=== PATIENT | male | born 1950 | race Caucasian/White ===

== ENCOUNTER 2023-03-07 16:58 | Inpatient (IN) | payer MEDICARE, OTHER ==
[~2023-03-07] VITALS: Ht 172.7 cm; Wt 89.9 kg
[2023-03-07] MEDS ORDERED: LIPITOR40 MG PO (17:16)
[2023-03-07] MEDS ORDERED: PARVA-CAL 5001 EACH PO (17:17)
[2023-03-07] MEDS ORDERED: ST. JOSEPH ASPI81 M1 PO ×2 (17:17)
[2023-03-07] MEDS ORDERED: FERROUS GLUCON324 M1 PO ×2 (17:18)
[2023-03-07] MEDS ORDERED: HEARTBURN PREVE20 MG PO ×2 (17:18)
[2023-03-07] MEDS ORDERED: LISINOPRIL20 MG PO ×2 (17:18)
[2023-03-07] MEDS ORDERED: KAPSPARGO SPRIN25 MG PO (17:19)
[2023-03-07] MEDS ORDERED: METFORMIN HCL500 M3 PO (17:19)
[2023-03-07] MEDS ORDERED: SOAANZ40 MG PO ×2 (17:20)
[2023-03-07] MEDS ORDERED: FLOMAX0.4 MG PO ×2 (17:20)
[2023-03-07 17:38] LABS: BASOPHILS 0.8 % (0-2); EOSINOPHILS 1.2 % (0-6); HEMATOCRIT 33.7 % (35.0-50.0); HEMOGLOBIN 10.4 g/dL (12.0-18.0); LYMPHOCYTES 12.8 % (24-44); MCH 24.6 (27-36); MCHC 30.8 g/dl (30-36); MCV 79.9 fl (81-99); MONOCYTES 9.4 % (0-12); NEUTROPHILS 75.8 % (39-80); PLATELET COUNT 148 K/uL (140-440); RBC 4.22 M/ul (4.3-5.7); RDW 22.2 (10.5-15.0)
[2023-03-07 18:00] LABS: ALBUMIN 3.1 g/dL (3.4-5.0); ALBUMIN/GLOBULIN RATIO 0.63 (1.1-2.4); ANION GAP 13.5 (7-21); BILIRUBIN, TOTAL 1.3 ng/dL (0.2-1.0); BUN/CREATININE RATIO 14.15 (6.0-28.6); CREATININE, SERUM 2.12 mg/dL (0.70-1.30); POTASSIUM 5.5 mmol/L (3.5-5.1)
[2023-03-07 20:16] LABS: INFLUENZA B NAA NEGATIVE (NEGATIVE); RESPIRATORY SYNCYTIAL VIR NAA NEGATIVE (NEGATIVE)
[2023-03-07 22:19] VITALS: BP 116/75
[2023-03-07 22:35] LABS: ANION GAP 13.8 (7-21); BUN/CREATININE RATIO 14.28 (6.0-28.6); CALCIUM 9.1 mg/dL (8.5-10.1); CREATININE, SERUM 2.24 mg/dL (0.70-1.30); POTASSIUM 5.8 mmol/L (3.5-5.1)
--- NOTE | 2023-03-07 22:53 | EKG ---
[facility] [address] [place] [address] Signed Sinus tachycardia Low voltage QRS Cannot rule out Inferior infarct , age undetermined Possible Anterolateral infarct , age undetermined Abnormal ECG No previous ECGs available Confirmed by Natasha Khalil MD () on 03/07/2023 10:53:01 PM Electronically Signed By: NATASHA KHALIL MD 03/07/232252 PATIENT NAME: REY BYRD Electrocardiogram DATE OF : 54 PHYSICIAN: NATASHA KHALIL MD REPORT #: [id number] REPORT IS CONFIDENTIAL AND NOT TO BE RELEASED WITHOUT AUTHORIZATION
--- NOTE | 2023-03-07 23:39 | NUR ---
pATEINT TRANSFERRED FROM ed. rEPORT PROVIDED BY YAIR. PATIENT PLEASANT, A/O, TELE APPLIED, VSS, O2 SATS 94-96% ON RA AND PATIENT STATES HE DOES NOT FEEL SOB NOW, LUNGS WITH EXP WHEEZE, PATIENT WITH GENERALIZED EDEMA TO ABD, CHEST, LEGS, GIVEN 40MG IV LASIX, BLOOD SUGAR 106 AND NO INSULIN REQUIRED, TALKED WITH MD ON PHONE - HE ADDED CALCIUM GLUCANATE 100MG IV TO ORDERS TO ASSIST WITH ELEVATED POTASSIUM, WILL REDRAW LABS AT 0200. PATIENT WITH BRUISE TO LEFT ELBOW, REDNESS AND DRY BILAT LE, PATIENT DENIES N/T. PATIENT LEFT LEG IS WEAKER THAN RIGHT, HAS A RED AREA TO COCCYX SKIN IS NOT BROKEN, MEPLILEX FOAM PAD APPLIED. PATIENT ASSISTED TO LAY ON RIGHT SIDE WITH PILLOW SUPPORT. CALL LIGHT IN REACH. PATIENT WANTS TO SLEEP NOW AND HAS NO COMPLIANTS.
[2023-03-08] VITALS (8 sets, daily range): BP systolic 102–117; BP diastolic 64–78
[2023-03-08] MEDS ORDERED: MAGNESIUM OXID400 M1 PO ×2
[2023-03-08] MEDS ORDERED: MELATONIN3 MG PO ×2 (00:03)
[2023-03-08] MEDS ORDERED: PLAVIX75 MG PO ×2 (00:04)
--- NOTE | 2023-03-08 02:23 | NUR ---
Patient sleeping between care, lab in for blood draw, Vitals done and stable, Attempted to change patients incont pad and he did not want me to and started to becomde upset when pushed about it. Talked to patient about the need to keep track of his output and assured him I would take care of it quickly and then allow him to sleep uninterupted for several hours and patient agreed. Had a large amount of incont. urine, percare provided and clean pad applied. patient resting on side now, lights out and call light within reach.
[2023-03-08 02:34] LABS: ANION GAP 14.9 (7-21); BUN/CREATININE RATIO 14.88 (6.0-28.6); CALCIUM 9.3 mg/dL (8.5-10.1); CREATININE, SERUM 2.15 mg/dL (0.70-1.30); POTASSIUM 5.9 mmol/L (3.5-5.1)
--- NOTE | 2023-03-08 02:50 | NUR ---
Lab results back, MD notified. Potassium went from 5.8 to 5.9. MD would like to continue close monitoring and if 0600 lab draw has not come down he would like notified. patient resting in bed, no complaints, just wanting to get some sleep.
[2023-03-08 05:21] LABS: BASOPHILS 1.3 % (0-2); HEMATOCRIT 31.9 % (35.0-50.0); HEMOGLOBIN 9.9 g/dL (12.0-18.0); LYMPHOCYTES 12.4 % (24-44); MCH 24.8 (27-36); MCHC 31.1 g/dl (30-36); MCV 79.7 fl (81-99); MONOCYTES 7.9 % (0-12); NEUTROPHILS 78.4 % (39-80); PLATELET COUNT 140 K/uL (140-440); RDW 22.4 (10.5-15.0)
--- NOTE | 2023-03-08 05:26 | NUR ---
Patient awake, had a brief leg cramp. assisted up to bedside to sit, Noted increased SOB with activity. placed on 2 liters NC for comfort. Patient happy he was able to get a good night sleep. Incont. urine, pericare provided and pad changed, Patient is now going to try to go back to sleep, lights out and call light within reach.
[2023-03-08 05:39] LABS: ALBUMIN 3.1 g/dL (3.4-5.0); ALBUMIN/GLOBULIN RATIO 0.67 (1.1-2.4); ANION GAP 16.6 (7-21); BILIRUBIN, TOTAL 1.6 ng/dL (0.2-1.0); BUN/CREATININE RATIO 14.6 (6.0-28.6); CALCIUM 9.1 mg/dL (8.5-10.1); CREATININE, SERUM 2.26 mg/dL (0.70-1.30); PHOSPHORUS, INORGANIC 5.4 mg/dL (2.5-4.9); POTASSIUM 5.6 mmol/L (3.5-5.1); PROTEIN, TOTAL 7.7 g/dL (6.4-8.2)
--- NOTE | 2023-03-08 07:00 | NUR ---
Report from night nurse. Patient resting in bed with eyes closed, allowed to rest.
--- NOTE | 2023-03-08 07:30 | NUR ---
Yelling out. This nurse in room. Patient states his left foot is painful. States he just wants lotion applied to foot. Lotion applied per request and elevated on pillow. States pain has decreased significantly. Denies other needs at this time.
--- NOTE | 2023-03-08 09:37 | NUR ---
ASSEMSSMENT COMPLETED. AM MEDICATIONS ADMINISTERED. INCONTINENT, PERICARE PROVIDED. VITALS OBTAINED AND WEIGHED. WARM BLANKET PROVIDED AND TEMP INCREASED IN ROOM. DENIES OTHER NEEDS. CALL LIGHT IN REACH, BED RAILS UP X2.
[2023-03-08] MEDS ORDERED: METFORMIN HCL500 MG PO ×2 (09:58)
[2023-03-08] MEDS ORDERED: NITROGLYCERIN0.4 MG SL ×2 (09:58)
[2023-03-08] MEDS ORDERED: ATORVASTATIN CA40 MG PO ×2 (09:59)
[2023-03-08] MEDS ORDERED: METOPROLOL TART25 MG PO ×2 (10:00)
[2023-03-08 12:14] LABS: ANION GAP 15.7 (7-21); BUN/CREATININE RATIO 14.97 (6.0-28.6); CALCIUM 9.1 mg/dL (8.5-10.1); CREATININE, SERUM 2.27 mg/dL (0.70-1.30); POTASSIUM 5.7 mmol/L (3.5-5.1)
--- NOTE | 2023-03-08 12:25 | NUR ---
MED REC COMPLETE
[2023-03-08 16:00] LABS: EOSINOPHILS 0.2 % (0-6); HEMATOCRIT 32.2 % (35.0-50.0); LYMPHOCYTES 13.8 % (24-44); MCH 24.7 (27-36); MCHC 31.1 g/dl (30-36); MCV 79.4 fl (81-99); MONOCYTES 10.5 % (0-12); NEUTROPHILS 74.5 % (39-80); PLATELET COUNT 130 K/uL (140-440); RBC 4.05 M/ul (4.3-5.7); RDW 22.3 (10.5-15.0)
[2023-03-08 17:16] LABS: ANION GAP 15.7 (7-21); BUN/CREATININE RATIO 16.07 (6.0-28.6); CALCIUM 9.3 mg/dL (8.5-10.1); CREATININE, SERUM 2.24 mg/dL (0.70-1.30); POTASSIUM 5.7 mmol/L (3.5-5.1)
--- NOTE | 2023-03-08 19:50 | NUR ---
REPORT RECIEVED FROM DAY SHIFT RN. PATIENT IN BED WATCHING TV. PATIENT STATES NEEDING TO HAVE BM. PATIENT PLACED ON BEDPAN WITH CALL LIGHT FOR PRIVACY AND EDUCATED HOW TO CALL WHEN HE IS READY. PATIENT STATES NO FURTHER NEEDS.
--- NOTE | 2023-03-08 21:12 | NUR ---
PATIENT RESTING IN BED WATCHING TV. PATIENT VS AND I&Os OBTAINED AND RECORDED. ASSESSMENT COMPLETE. IV FLUSHED AND WNL. BILAT LUNGS CLEAR. PATIENT STATES PAIN IN BILAT THIGHS. PRN PAIN AND SCHEDULED MEDICATIONS ADMINISTERED, SEE MAR. PATIENT HAS NO FURTHER NEEDS. CALL LIGHT IN REACH. PATIENT STATES HIS "BREATHING IS ALOT BETTER".
[2023-03-08 22:22] LABS: ANION GAP 15.2 (7-21); BUN/CREATININE RATIO 15.78 (6.0-28.6); CALCIUM 9.1 mg/dL (8.5-10.1); CREATININE, SERUM 2.28 mg/dL (0.70-1.30); POTASSIUM 6.2 mmol/L (3.5-5.1)
--- NOTE | 2023-03-08 22:46 | NUR ---
PATIENT IN BED RESTING ON BACK WITH EYES CLOSED. REPIRATIONS EVEN AND UNLABORED. CALL LIGHT IN REACH.
--- NOTE | 2023-03-08 23:39 | NUR ---
PATIENT TRANSFERRED TO CCU. REPORT GIVEN TO CCU RN. ALL PERSONAL BELONGINGS WITH PATIENT.
[2023-03-09] VITALS (13 sets, daily range): BP systolic 88–112; BP diastolic 62–81
--- NOTE | 2023-03-09 | NUR ---
DISCUSSED PLAN OF CARE WITH DR. KHALIL. PATIENT TO RECEIVED INSULIN SUB-Q PER ORDER WITH AMP OF D50 AND THEN D10 STARTED AT 50 ML/HR. PLAN TO DO HOURLY ACCU CHECKS TO ASSURE PATIENT'S GLUCOSE IS WNL; WILL COVER WITH MORE INSULIN ON A CARE BY CARE BASES. PATIENT IS ALSO TO RECEIVE A LOJA FOR STRICT I&O'S.
--- NOTE | 2023-03-09 00:30 | NUR ---
PATIENT IS AAOX4. ON ARRIVAL PATIENT INCONTINENT OF LARGE BM. ATTENDS CHANGED. PRESSURE SORE NOTED ON COCCYX AND ALYVEN CHANGED. BARRIER CREAM APPLIED TO BUTTOCKS. GROIN IS RED WITH SIGNIFICANT EDEMA NOTED. LOJA PLACED; 14F COUDE LOJA WITH SLIGHT RESISTANCE. PATIENT REPORTS HAVING TO HAVE A LOJA INPATIENT AND OUTPATEINT DUE TO RETENTION ISSUES. GROIN CLEANED AND BARRIER CREAM APPLIED. PATIENT NOTED TO HAVE 3+ EDEMA FROM HIS FEET UP TO HIS HIPS, ABDOMEN AND BACK. GENERALIZED EDEMA IN THE GROIN. 2-3+ PITTING EDEMA IN THE YAIMA ARMS WELL. PATIENT'S COUGH IS WET AND AUDIBLE WHEEZING NOTED WITH ACTIVITY. LUNG SOUNDS CLEAR IN UPPER ANTERIOR LUNG FEILDS. DIMINISHED WITH EXPIRTORY WHEEZES IN MID TO LOWER LOBES BILATERALLY. PATIENT DENIED SOB AT REST BUT APPEARED SOB WITH ACTIVITY AND HEAD OF BED DOWN. TOLERATING ROOM AIR. IV SITE IN RIGHT WRIST FLUSHED EASILY. PATIENT ON MATERIAL HANDLER 1ST SHIFT. VS STABLE. SINUS RHYTHM NOTED WITH VERY POOR AMPLITUDE. LIOR HOSE ON BOTH LOWER EXTREMITIES AND HEELS FLOATED ON PILLOWS. PATIENT TURNED SLIGHTLY TO RIGHT SIDE TO REDUCE PRESURE ON COCCYX. CALL LIGHT IN HAND. LIGHTS DIMMED.
--- NOTE | 2023-03-09 02:09 | NUR ---
IV PLACED IN LFA, TOLERATED WELL. FLUSHES WELL, GOOD BLOOD RETURN. CBG 172. NO OTHER NEEDS AT THIS TIME. CALL LIGHT IN REACH.
[2023-03-09 02:21] LABS: ANION GAP 13.3 (7-21); BUN/CREATININE RATIO 16.15 (6.0-28.6); CALCIUM 8.8 mg/dL (8.5-10.1); CREATININE, SERUM 2.29 mg/dL (0.70-1.30); POTASSIUM 5.3 mmol/L (3.5-5.1)
--- NOTE | 2023-03-09 02:30 | NUR ---
DISCUSSED LABS WITH DR. KHALIL. ORDERS TO DC D10 IV FLUIDS. WILL RECHECK BLOOD GLUCOSE AND CORRECT ACCORDING TO THE SSI ORDER AT 0400. PATIENT APPEARS TO BE RESTING COMFORTABLE. EYES CLOSED. VS STABLE. CALL LIGHT IN REACH.
--- NOTE | 2023-03-09 04:00 | NUR ---
accu check done; wnl. patient repositioned for comfort. call light in reach.
--- NOTE | 2023-03-09 06:00 | NUR ---
LABS DRAWN PER ORDER. PATIENT REPORTS DISCOMOFRT IN HIS FEET. IMPROVED WITH REPOSITIONING. LOJA OUTPUT MINIMAL, REPOSITIONED FOR IMPROVED FLOW. PATIENT REQUESTED HEEL PROTECTORS TO BE OFF. TEDHOSE IN PLACE AND PILLOW UPDER EAT LEG. CALL LIGHT IN REACH.
[2023-03-09 06:27] LABS: HEMOGLOBIN 8.6 g/dL (12.0-18.0)
[2023-03-09 06:30] LABS: BASOPHILS 1.4 % (0-2); EOSINOPHILS 0.3 % (0-6); HEMATOCRIT 27.8 % (35.0-50.0); MCH 24.5 (27-36); MCHC 30.9 g/dl (30-36); MCV 79.3 fl (81-99); MONOCYTES 16.6 % (0-12); NEUTROPHILS 67.7 % (39-80); PLATELET COUNT 128 K/uL (140-440); RDW 22.5 (10.5-15.0)
[2023-03-09 06:40] LABS: ALBUMIN 2.2 g/dL (3.4-5.0); ALBUMIN/GLOBULIN RATIO 0.58 (1.1-2.4); ANION GAP 14.3 (7-21); BILIRUBIN, TOTAL 1.2 ng/dL (0.2-1.0); BUN/CREATININE RATIO 16.17 (6.0-28.6); CALCIUM 7.5 mg/dL (8.5-10.1); CREATININE, SERUM 2.04 mg/dL (0.70-1.30); POTASSIUM 4.3 mmol/L (3.5-5.1)
--- NOTE | 2023-03-09 06:55 | NUR ---
NOTED PATIENT'S BLOOD GLUCOSE ON 0600 LABS IS 88. PROVIDED PATIENT IS A CLEAR ENSURE TO DRINK.
--- NOTE | 2023-03-09 07:10 | NUR ---
PATIENT REPOSITIONED. BOTH HIPS FLOATED.
--- NOTE | 2023-03-09 07:30 | NUR ---
REPORT RECEIVED. PATIENT IS RESTING IN BED.
--- NOTE | 2023-03-09 08:00 | NUR ---
REFUSED BREAKFAST. ACCUCHECK-171. ASSESSMENT DONE. TALKED WITH PATIENT ABOUT POC FOR THE DAY, INDICATES UNDERSTANDING.
--- NOTE | 2023-03-09 09:15 | NUR ---
DR. KHALIL HERE TO SEE PATIENT.
--- NOTE | 2023-03-09 09:30 | NUR ---
PHYSICAL THERAPY HERE TO WORK WITH PATIENT. PATIENT NEED MUCH ENCOURGEMENT TO WORK WITH PHYSICAL THERAPIST. IS MOANING. SMALL STOOL, ALLEVYN TO COCCYX AREA CHANGED.
--- NOTE | 2023-03-09 11:10 | NUR ---
C/O FEELING SHORT OF BREATH. NO INCREASED RESP DISTRESS NOTED. O2 AT 2 LITERS APPLIED.
--- NOTE | 2023-03-09 12:00 | NUR ---
ASSESSMENT UNCHANGED. REFUSING LUNCH. STATES HE DOESN'T FEEL LIKE EATING.
--- NOTE | 2023-03-09 13:30 | NUR ---
FOAM MATTRESS (EGG CREATE) APPLIED. TOLERATED WELL. KNEE HIGH LIOR HOSE OFF FOR APPROX 5 MIN TO ASSESS, FEET, SHINS AND CALF. LEFT POSTERIOR ANKLE HAS SMALL SCAB. PATIENT SAID HE HURT THAT AREA BEFORE HE WENT TO THE [facility]. THE RIGHT FOOT HAS FEW SMALL SCABS ON THE TOP OF FOOT. RIGHT LORENZO HAS ONE SMALL SCAB ABOUT THE SIZE OF A PENCIL ERASER. FOOT DROP (HEEL MEDIX ADVANCED) PLACED TO BOTH FEET. BUMEX GTT CONTINUES TO INFUSE.
[2023-03-09 16:13] LABS: ANION GAP 11.5 (7-21); BUN/CREATININE RATIO 17.43 (6.0-28.6); CALCIUM 8.8 mg/dL (8.5-10.1); CREATININE, SERUM 2.18 mg/dL (0.70-1.30); POTASSIUM 4.5 mmol/L (3.5-5.1)
--- NOTE | 2023-03-09 16:30 | NUR ---
DR. KHALIL AWARE OF LABS DRAWN AT 1600. ORDERS RECEICVED TO CONTINUE BUMEX GTT AT 0.5 MG/HR.
--- NOTE | 2023-03-09 17:00 | NUR ---
SITTING UP IN BED TO TAKE DINNER. ACCUCHECK-135. NO INSULIN GIVEN.
--- NOTE | 2023-03-09 21:27 | NUR ---
PATIENT ROCHELLE REPORTS COMFORT AT THIS TIME. HE IS WATCHING TV AND CONVERSING APPROPRIATELY WITH THIS RN. 2RN CHANGE IN POSITION WITH PILLOWS TO LEFT SIDE. WARM BLANKETS PROVIDED FROM WARMER. VSS AND WDL PER MONITOR. INDWELLING LOJA CATHETER REMAINS INTACT AND PATENT.
--- NOTE | 2023-03-09 23:01 | NUR ---
PATIENT ROCHELLE IS NOTED TO DISPLAY EXAGGERATED PERCEPTIONS. THIS RN HAS BROUGHT HIM 3 BLANKETS FROM THE BLANKET WARMER, PERFORMED CATHETER CARE AND SAGE CARE, GIVEN HIM A BED BATH, ADMINISTERED MEDICATION, REPOSITIONED HIM 2X, TAKEN VITAL SIGNS, ALLOWED PATIENT TO SPEAK ABOUT HIS LIFE AND OF 34 YEARS REPOSITIONED LEFT FOOT 3 TIMES AND PROPPED ON PILLOWS, AND WATCHED TV WITH HIM AT HIS REQUEST SINCE THE COMMENCEMENT OF MY SHIFT AT 1900. I LEFT HIS ROOM AT 1005 AND WENT ON A 15 MINUTE BREAK. AFTER RETURNING AT 1020 I WAS INFORMED THAT HE BEGAN YELLING, HOWEVER HAD THE CALL LIGHT ON HIS RIGHT SIDE. HE ASKED FOR ANOTHER REPOSITION OF HIS FOOT AND STATED THAT I LEFT HIM "HIGH AND DRY" AND HE HAS NOT SEEN ANYONE FOR HOURS. PATIENT IS NOW ASLEEP AND THERE ARE NO NEEDS AT THIS TIME
[2023-03-09 23:14] LABS: ANION GAP 12.1 (7-21); BUN/CREATININE RATIO 17.64 (6.0-28.6); CALCIUM 8.7 mg/dL (8.5-10.1); CREATININE, SERUM 2.04 mg/dL (0.70-1.30); POTASSIUM 4.1 mmol/L (3.5-5.1)
[2023-03-10] VITALS (18 sets, daily range): BP systolic 89–107; BP diastolic 55–74
--- NOTE | 2023-03-10 00:02 | NUR ---
PATIENT ROCHELLE IS NOTED TO BE RESTING WITH EYES CLOSED. HE HAS BEEN REPOSITIONED TO THE RIGHT. HIS INDWELLING LOJA CATHETER CONTINUES TO BE PATENT AND INTACT. HE ENDORSES COMFORT THIS HOUR AND DENIES NEEDS. HIS LEFT LEG IS PLACED ON ONE PILLOW. +3 EDEMA NOTED ON BLE, GROIN, AND LEFT ARM
--- NOTE | 2023-03-10 00:50 | NUR ---
PATIENT JAVIER HAS BEEN PROVIDED WITH DIET GINGERALE. CATHETER CARE AND PROVIDED AGAIN DUE TO PURULENT DISCHARGE NOTED DURING 1ST ASSESSMENT EARLIER ON IN THE SHIFT. PERSONAL BELONGINGS ON BEDSIDE TABLE INCLUDING EYEGLASSES AND CELL PHONE. CALL LIGHT ON BED WITH PATIENT. BUMEX GTT CONTINUES TO BE ADMINISTERED.
--- NOTE | 2023-03-10 02:40 | NUR ---
PATIENT ROCHELLE IS RESTING COMFORTABLY WITH EYES CLOSED. VSS AND WDL. SECURITY CHECK OF ROOM CONDUCTED AND IN ORDER. LIGHTS OFF AND ROOM TEMPERATURE SET TO HIS STANDARDS. REASSESSMENT OF PAIN IS MINIMAL 04/16, AND INDWELLING LOJA CATHETER REMAINS PATENT AND INTACT. BUMEX GTT BEING ADMINISTERED. STRICT I&O
--- NOTE | 2023-03-10 03:46 | NUR ---
PATIENT BYRD AWAKE AND ALERT. HE IS WATCHING TV AND DENIES NEEDS OR DISCOMFORTS AT THIS TIME. AN EXTRA PILLOW WAS PLACED UNDERNEATH RIGHT HIP FOR ADDED COMFORT. 325CC URINE EMPTIED FROM UROMETER THIS HOUR.
[2023-03-10 05:42] LABS: BASOPHILS 1.1 % (0-2); EOSINOPHILS 0.9 % (0-6); HEMATOCRIT 29.2 % (35.0-50.0); HEMOGLOBIN 9.3 g/dL (12.0-18.0); LYMPHOCYTES 13.8 % (24-44); MCH 24.7 (27-36); MCHC 31.8 g/dl (30-36); MCV 77.6 fl (81-99); MONOCYTES 12.5 % (0-12); NEUTROPHILS 71.7 % (39-80); PLATELET COUNT 134 K/uL (140-440); RBC 3.76 M/ul (4.3-5.7)
[2023-03-10 06:02] LABS: ALBUMIN 2.7 g/dL (3.4-5.0); ALBUMIN/GLOBULIN RATIO 0.68 (1.1-2.4); ANION GAP 9.8 (7-21); BILIRUBIN, TOTAL 1.4 ng/dL (0.2-1.0); BUN/CREATININE RATIO 17.14 (6.0-28.6); CALCIUM 8.5 mg/dL (8.5-10.1); CREATININE, SERUM 2.1 mg/dL (0.70-1.30); POTASSIUM 3.8 mmol/L (3.5-5.1); PROTEIN, TOTAL 6.7 g/dL (6.4-8.2)
--- NOTE | 2023-03-10 06:15 | NUR ---
BUMEX GTT TURNED OFF DUE TO SOFT PRESSURES AND SOMNOLENCE NOTED. NOTIFIED MD KHALIL OF PRESSURES TRENDING DOWN. BUMEX GTT WILL REMAIN OFF FOR NOW. NEURO- ALERT AND ORIENTED X 3 THROUGHOUT THE SHIFT. MOVES ALL EXTREMITIES WITH DIFFICULTY. ENDORSED PAIN IN RIGHT HIP. ACETAMINOPHEN 650MG GIVEN. PERRL RESP- RA, O2 SATS MAINTAINED ABOVE 92% CARDIAC- SINUS TACHYCARDIA 101-115BPM. BIFID PWAVE. CURRENT BLOOD PRESSURE 86/61 (70). 3+ EDEMA NOTED IN BLE AND RIGHT ARM. AFEBRILE. LIOR HOSE REMAIN ON. GI/- STRICT I&O. EDUCATION PROVIDED FOR CHF. BUMEX GTT TURNED OFF AT 0550. NO BM THIS SHIFT. IDWELLING LOJA CATHETER REAMINS PATENT. 3L OF URINE OUT DURING THE SHIFT. INT- SEE ASSESSMENT. NA 3.8 K 4.1
--- NOTE | 2023-03-10 08:45 | NUR ---
OOB TO CHAIR USING WALKER AND GATE BELT. PATIENT IS EXTREMELY WEAK. REBECCA REQUIRED TOTAL ASSIST OF 2 STAFF.
--- NOTE | 2023-03-10 10:35 | NUR ---
PATIENT ALERT AND ORIENTED, SITTING UP IN RECLINER. STATES HE LIVES IN A HOUSE WITH HIS GIRLFRIEND. STATES THEY BOTH ARE ABLE TO DRIVE. HAS 2 STEPS TO GET INSIDE, NO OTHER STAIRS. DOES HAVE A 4 WHEELED WALKER HE USES AT HOME NORMALLY. WAS RECENTLY ADMITTED, AFTER [facility]STEM[facility], TO [facility] FOR SNF. WAS PLANNING DC HOME APPROXIMATELY 1 WEEK AGO BECAUSE HE WAS DOING WELL THEN BECAME INCREASINGLY WEAK AND SHORT OF BREATH AND WAS ADMITTED TO THIS FACILITY AFTER HE WAS WHEELCHAIR BOUND FOR DAYS LEADING TO ADMISSION. STATES HE NORMALLY IS ABLE TO DRIVE, BUT GIRLFRIEND DRIVES WELL. STATES HIS GIRLFRIEND MANAGES [employer] OUTLET IN [place], AND THEY HAVE NO CURRENT FINANCIAL ISSUES. PATIENT NORMALLY LIVES IN [place] AND PLANS TO RETURN AFTER HIS SNF STAY. DENIES OTHER NEEDS AT THIS TIME.
--- NOTE | 2023-03-10 11:27 | NUR ---
PHYICAL THERAPY HERE TO WORK WITH PATIENT. PATIENT CONTINUES TO SIT IN CHAIR. LOJA CATH PATENT. DENIES PAIN.
--- NOTE | 2023-03-10 12:00 | NUR ---
[facility] AND [facility] CONTACTED FOR PATIENT RECORDS AT THIS TIME.
--- NOTE | 2023-03-10 12:10 | NUR ---
ASSESSMENT UNCHANGED. PATIENT REMAINS IN CHAIR. DENIES PAIN.
--- NOTE | 2023-03-10 12:40 | NUR ---
TOOK APPROX 40% OF LUNCH. PATIENT STATES HE FEELS BETTER. RECLINING IN CHAIR.
--- NOTE | 2023-03-10 13:00 | NUR ---
TOOK LUNCH FAIR. BACK TO BED USING ARIEL STEADY. TOLERATED WELL.
--- NOTE | 2023-03-10 14:00 | NUR ---
ECHO BEING DONE AT BEDSIDE.
--- NOTE | 2023-03-10 14:42 | NUR ---
UR NOTE MCG HEART FAILURE (ISC) INPATIENT 03/07/23 MET CLINICAL INDICATIONS FOR ADMISSION TO INPATIENT CARE GL DAY 1 03/08/23 VARIANCE GL DAY 2 03/09/23 VARIANCE GL DAY 2
--- NOTE | 2023-03-10 14:45 | NUR ---
ECHO COMPLETE. IS W/O C/O.
--- NOTE | 2023-03-10 17:00 | NUR ---
WOUND RN HERE TO EVELAUTE PATIENT. PATEINT IS COOPERATIVE.
--- NOTE | 2023-03-10 18:00 | NUR ---
DR. GUTIERREZ HERE TO TALK WITH PATIENT. PATIENT TOOK DINNER FAIR.
--- NOTE | 2023-03-10 20:38 | NUR ---
SBAR HANDOFF RECEIVED FROM PERCY GOVEA. BRIEFED REGARDING PLAN OF CARE, PROGRESS THROUGHOUT THE DAY, AND SIGNIFICANT EVENT. THIS RN ALSO ROUNDED WITH MD GUTIERREZ. RECEIVED ORDERS FOR BUMEX AT 0130 03/11/23. PATIENT ROCHELLE REPORT SLIGHT PLAIN IN RIGHT HIP 04/16. SHARP AND SLIGHTY BURNING. HE WAS REPSITIONED TO THE RIGHT WITH PILLOWS PLACED UNDERNEATH FOR CARE AND COMFORT, PM MEDS PROVIDED, SAGE CARE AND CATH CARE PERFORMED, INDWELLING LOJA CATHETER EMPTIED AND SAFETY CHECK PERFORMED. VSS AND WDL PER MONITOR
--- NOTE | 2023-03-10 22:21 | NUR ---
PATIENT ROCHELLE HAS ENDORSED DISCOMFORT IN LEFT ANKLE. REPOSITIONED FOOT AND PLACED TWO PILLOWS UNDERNEATH ANKLE FOR COMFORT. HE ENDORSES THAT IT IS "MORE COMFORTABLE NOW" AND STATES THAT THE PAIN IS CHRONIC. OTHERWISE VSS ARE STABLE AND WDL, REPOSITIONED PATIENT FOR THE 2200 TURN, LIGHTS DIMINISHED, AND CURTAIN CLOSED
--- NOTE | 2023-03-10 22:40 | NUR ---
PATIENT ROCHELLE REQUESTED A REPOSITION OF HIS LEFT FOOT. 2 PILLOWS REMOVED AND FOOT WAS LEFT SUSPENDED PER PATIENT REQUEST. INDWELLING LOJA CATHETER REMAINS PATENT AND INTACT. MELATONIN WILL BE PROVIDED FOR RESTFUL SLEEP.
[2023-03-11] VITALS (11 sets, daily range): BP systolic 94–110; BP diastolic 63–80
--- NOTE | 2023-03-11 00:46 | NUR ---
PATIENT ROCHELLE RECEIVED A 650MG ACETAMINOPHEN FOR PAIN 5/10 IN HIS LEFT ANKLE. HE WAS ALSO REPOSITIONED ON HIS RIGHT SIDE WITH HIS LEFT FOOT/ ANKLE ELEVATED. A WARM BLANKET WAS PROVIDED AND HE DRANK SOME WATER. HE NOW ENDORSES COMFORT AND HAS STATED THAT HE WOULD NOW LIKE TO REST. 300CC URINE EMPTIED FROM HIS INDWELLING LOJA CATHETER WHICH REMAINS PATENT AND INTACT. URINE IS NOTED TO HAVE SOME SEDIMENT AND YELLOW.
--- NOTE | 2023-03-11 02:23 | NUR ---
PATIENT ROCHELLE WAS PROVIDED A WARM BLANKET AND REPOSITIONED FURTHER ON THE RIGHT SIDE FOR COMFORT. INITIALLY, HE HAD REFUSED A TURN BUT WAS EVENTUALLY ACCEPTING OF THIS INTERVENTION. HE CONTINUES TO CALL OUT WHENEVER HE WOULD LIKE THE NURSE TO VISIT VS CALLING ON THE CALL LIGHT. PATIENT ROCHELLE HAS CALLED OVER 20X DURING THIS SHOFT FOR VARIOUS REASONS SUCH MORE BLANKETS, LESS BLANKETS, WARM BLANKETS, COLD BLAKETS, MORE PILLOWS, LESS PILLOWS, PAIN MEDICATIONS, CELL PHONE COUNSELLORS, ETC.
--- NOTE | 2023-03-11 04:39 | NUR ---
PATIENT ROCHELLE IS RESTING COMFORTABLY WITH EYES CLOSED. HE IS EASY TO AROUSE AND DENIES ANY NEEDS AT THIS TIME. SECURITY CHECK PERFORMED. ALL PERSONAL BELONGINGS, WATER CUP, AND CALL LIGHT ON BEDISDE TABLE. INDWELLING LOJA CATHETER REMAINS INTACT.
[2023-03-11 05:39] LABS: BASOPHILS 0.7 % (0-2); EOSINOPHILS 2.4 % (0-6); HEMATOCRIT 29.2 % (35.0-50.0); HEMOGLOBIN 9.4 g/dL (12.0-18.0); LYMPHOCYTES 18.8 % (24-44); MCH 24.8 (27-36); MCHC 32.2 g/dl (30-36); MCV 77.2 fl (81-99); MONOCYTES 12.7 % (0-12); NEUTROPHILS 65.4 % (39-80); PLATELET COUNT 155 K/uL (140-440); RBC 3.78 M/ul (4.3-5.7); RDW 21.4 (10.5-15.0)
[2023-03-11 06:11] LABS: ALBUMIN 2.5 g/dL (3.4-5.0); ALBUMIN/GLOBULIN RATIO 0.64 (1.1-2.4); ANION GAP 8.6 (7-21); BILIRUBIN, TOTAL 1.3 ng/dL (0.2-1.0); BUN/CREATININE RATIO 17.77 (6.0-28.6); CALCIUM 8.1 mg/dL (8.5-10.1); CREATININE, SERUM 1.8 mg/dL (0.70-1.30); MAGNESIUM 1.5 mg/dL (1.8-2.4); POTASSIUM 3.6 mmol/L (3.5-5.1); PROTEIN, TOTAL 6.4 g/dL (6.4-8.2)
[2023-03-11 06:12] LABS: TSH, 3RD GENERATION 0.596 uIU/mL (0.358-3.740)
--- NOTE | 2023-03-11 06:28 | NUR ---
PATIENT ROCHELLE CONTINUES TO EXPRESS MULTIPLE NEEDS AND DESIRES. MOST OF THESE INCLUDE, BUT ARE NOT LIMITED TO BLANKETS, PILLOWS, FLUIDS, SNACKS, REPOSITIONS, AND PAIN. NEURO- ALERT AND ORIENTED X 3. EXPRESSING MOVES ALL EXTREMITES 5/2. NEEDS STRONG ENCOURAGEMENT TO MOVE LOWER EXTREMITIES. ENDORSED RIGHT HIP AND LEFT ANKLE PAIN. ACETAMINOPHEN, PILLOWS, AND DISTRACTION WERE USED TO CONTROL PAIN. JAVIER WAS ABLE TO REST WITH EYES CLOSED WITH MELATONIN. CARDIAC- ST WITH BIFID PWAVE NOTED, GENERALIZED 2+ EDEMA IS IMPROVING. AFEBRILE RESP- SPO2 REMAINS ABOVE 92% ON ROOM AIR, ABLE TO COUGH AND DEEP BREATH, BREATH SOUNDS CLEAR AND DIMINISHED GI/- ABDOMEN FIRM AND EDEMATOUS, NON TENDER, BOWEL TONES NOTED, ENDORSE HUNGER AND THIRST, NO BM, INDWELLING LOJA CATHETER REMAINS PATENT AND INTACT, 1600CC FLUID RESTRICTION INT-SEE ASSESSMENT LDA- BILATERAL IV REMAIN SALINE LOCKED
--- NOTE | 2023-03-11 08:00 | NUR ---
ASSESSMENT DONE. ACCUCHECK 125, NO INSULIN GIVEN. AFTER ASSESSMENT DONE, SITTING UP IN BED FOR BREAKFAST. DENIES PAIN.
--- NOTE | 2023-03-11 08:20 | NUR ---
Spoke with Siddharth. He plans on returning to [place] when he is medically cleared. Per pt, this could be a few days as is attempting slow diurese. Pt will need [facility] for transport. Will discuss with Dr. Claire in the [phone] meeting.
--- NOTE | 2023-03-11 09:00 | NUR ---
PHYS THERAPY HERE TO WORK WITH PATIENT.
--- NOTE | 2023-03-11 09:43 | NUR ---
PATIENT UP TO CHAIR USING SARASTEADY, WITH THIS SPEECH LANGUAGE PATHOLOGIST TRAVEL AND PT ASSISTING. PATIENT TOLERATED WELL. BEDBATH PROVIDED, NEW GOWN ON. LINEN CHANGED. CALL LIGHT IN EASY REACH.
--- NOTE | 2023-03-11 10:30 | NUR ---
TORSAMIDE 40 MG PO GIVEN PER ORDERS. PATIENT REMAIMS IN CHAIR. OT NOW HERE TO WORK WITH PATIENT.
--- NOTE | 2023-03-11 11:22 | NUR ---
CCU ROUNDS. 15 MINTUES. PT EXPRESSED REACTIONS CONGRUENT WITH SITUATION. FACILTITATED STORY TELLING; PROVIDED COLOR REPAIRER EDUCATION; NORMALIZED EXPERIENCE OF PATIENT. PROVIDED PRAYER. PT EXPRESSED APPRECIATION.
--- NOTE | 2023-03-11 12:00 | NUR ---
ASSESSMENT DONE. IN CHAIR READY TO TAKE LUNCH.
--- NOTE | 2023-03-11 13:29 | NUR ---
Progress note for 03/11 sent to SHLOMO at [facility].
--- NOTE | 2023-03-11 13:30 | NUR ---
BACK TO BED USING ARIEL STEADY. TOLERATED WELL.
--- NOTE | 2023-03-11 14:27 | NUR ---
SF YOGURT AND WARM BLANKET PROVIDED PER REQUEST.
--- NOTE | 2023-03-11 17:00 | NUR ---
PATIENT SITTING IN BED, DINNER PROVIDED WELL ZEYAD BRYN. CALL LIGHT AND PERSONAL ITEMS IN EASY REACH
--- NOTE | 2023-03-11 18:29 | NUR ---
2G MAGNESIUM RIDER STARTED PER DR. GUTIERREZ VERBAL ORDER. PT PROVIDED WITH WARM BLANKET, DENIES OTHER NEEDS AT THIS TIME.
--- NOTE | 2023-03-11 19:00 | NUR ---
UP TO COMMODE VIA ARIEL VALDEZ.
--- NOTE | 2023-03-11 19:30 | NUR ---
BACK TO BED. NO BM. BACK TO BED W/O INCIDENT. REPORT TO NEXT SHIFT.
--- NOTE | 2023-03-11 20:30 | NUR ---
REPORT RECEIVED FROM NETTIE GREER. PT IS AWAKE IN BED WATCHING TV, FLOAT NURSE HAS BEEN IN HELPING PT TO REPOSITION HIS FEET AND GET BLANKETS ADJUSTED. HR 100'S, SINUS TACH.
--- NOTE | 2023-03-11 21:26 | NUR ---
vs, i&o and cbg completed. cbg 145, primary rn informed. warm blankets provided. left leg repositioned. pt states he has no other needs at this time. call light in reach, rails up.
--- NOTE | 2023-03-11 21:51 | NUR ---
IN TO DO HS MEDS/CARE. PT GIVEN WARM BLANKET, NO FURTHER REQUESTS.
--- NOTE | 2023-03-12 00:20 | NUR ---
PT CALLS TO ASK TO HAVE HIS FOOT EXAMINED IT HAS STARTED TO HURT, FROM HIS RIGHT ANKLE DOWN TO HIS TOE, NOTHING NEW FOUND SINCE LAST ASSESSMENT. SOCK REMOVED AND PT STATES IT FEELS BETTER, TYLENOL GIVEN WELL. REST OF ASSESSMENT IS UNCHANGED FROM PRIOR, PT TOOK TYLENOL AND WILL NOW TRY TO SLEEP.
[2023-03-12 01:41] VITALS: BP 97/66
--- NOTE | 2023-03-12 02:29 | NUR ---
PATIENT IN ROOM 113, ALERT AND ORIETNED, NO DISTRESS NOTED, PATIENT REPORTS "I AM FEELING A LOT BETTER" HE REPORTS NO NEEDS AT THIS TIME, ASSESSMENT COMPLETE., NO NEW CONCERNS
--- NOTE | 2023-03-12 03:23 | NUR ---
PATIENT CALLED NURSES STATION TO REPORT PAIN AT LEFT FOOT, DESCRIBED SPASM, WATER TAP WARM PACK PLACED TO TOP OF FOOT, PATIENT REPORTS IMPROVMENT.
--- NOTE | 2023-03-12 04:53 | NUR ---
ROUNDING, PATIENT REPORTS HE HAS NOT BEEN ABLE TO SLEEP, HE REPORTS HE IS HAVING FOOT PAIN AT TOES, REPOSITIONED LIOR HOSE ELASTIC AT BASE OF TOES, NOTED PATIENT HAS BAND INDENTION WHERE ELASTIC WAS. PT ASKED FOR FOOD, SUGER FREE PUDDING PROVIDED.
[2023-03-12 06:32] VITALS: BP 94/62
--- NOTE | 2023-03-12 07:24 | NUR ---
VERBAL BEDSIDE REPORT RECEIVED FROM PERCY NEGRETE. PT AWAKE AND ALERT. CALL LIGHT IN REACH, NO REQUESTS AT THIS TIME.
[2023-03-12 10:05] VITALS: BP 94/60
--- NOTE | 2023-03-12 10:08 | NUR ---
UR NOTES MCG HEART FAILURE (ISC) INPATIENT 03/10/23 VARIANCE GL DAY 2 03/11/23 VARIANCE GL DAY 2
--- NOTE | 2023-03-12 10:10 | NUR ---
PATIENT SITTING UP IN BED WATCHING TV. VITALS AND I&O'S DONE AND CHARTED. CALL LIGHT IN REACH. NO FURTHER NEEDS AT THIS TIME.
--- NOTE | 2023-03-12 12:02 | NUR ---
PT SITS UP IN RECLINER, EATS LUNCH, NC IN PLACE AT 1 LPM OF O2, CALL LIGHT IN REACH. NO REQUESTS AT THIS TIME.
--- NOTE | 2023-03-12 13:30 | NUR ---
PT ASSISTED TO CHANGE POSITION IN RECLINER. CALL LIGHT IN REACH, NO FURTHER REQUESTS AT THIS TIME.
[2023-03-12 14:09] VITALS: BP 100/55
[2023-03-12] MEDS ORDERED: FLOMAX0.4 MG PO ×2 (14:12)
--- NOTE | 2023-03-12 14:12 | NUR ---
MS BARNES. PT RECEIVING NURSING CARE. NO VISIT. PROVIDED PRAYER.
[2023-03-12] MEDS ORDERED: FERROUS GLUCON324 M1 PO ×2 (14:13)
[2023-03-12] MEDS ORDERED: PLAVIX75 MG PO ×2 (14:13)
[2023-03-12] MEDS ORDERED: NITROGLYCERIN0.4 MG SL ×2 (14:14)
[2023-03-12] MEDS ORDERED: ATORVASTATIN CA40 MG PO ×2 (14:14)
[2023-03-12] MEDS ORDERED: METOPROLOL TART25 MG PO ×2 (14:15)
[2023-03-12] MEDS ORDERED: LISINOPRIL20 MG PO ×2 (14:15)
[2023-03-12] MEDS ORDERED: SOAANZ40 MG PO ×2 (14:16)
[2023-03-12] MEDS ORDERED: ST. JOSEPH ASPI81 M1 PO ×2 (14:16)
[2023-03-12] MEDS ORDERED: HEARTBURN PREVE20 MG PO ×2 (14:17)
[2023-03-12] MEDS ORDERED: MAGNESIUM OXID400 M1 PO ×2 (14:17)
[2023-03-12] MEDS ORDERED: METFORMIN HCL500 MG PO ×2 (14:18)
[2023-03-12] MEDS ORDERED: MELATONIN3 MG PO ×2 (14:19)
--- NOTE | 2023-03-12 15:00 | NUR ---
Update from Dr. Claire. Called SHLOMO at [facility] and updated. Pt may return after 1100. Pt will dc to [facility] tomorrow. Orders, PASRR, med rec completed. All faxed to at [facility]. Called and scheduled the WC van for 3 pm 03/13/23.
--- NOTE | 2023-03-12 16:00 | NUR ---
PT TRANSFERRED FROM RECLINER TO BED VIA ARIEL STEADY SIT TO STAND. PT TOLERATED WELL. DRESSINGS TO COCCYX CHANGED. OLD DRESSING REMOVED, BLANCHABLE ERYTHEMA NOTED, CLEANSED WITH WOUND CLEANSER, PATTED DRY AND NEW SACRAL FOAM DRESSING APPLIED. MICONAZOLE POWDER APPLIED TO SATELITE RASH. DRESSING TO LEFT 1ST TOE CHANGED. OLD DRESSING REMOVED, WOUND CLEANSED WITH WOUND CLEANSER AND PATTED DRY. IODOSORB APPLIED TO WOUND BASE AND COVERED WITH FOAM DRESSING AND SECURED WITH TAPE. LEFT HEEL DRESSING CHANGED. OLD DRESSING REMOVED, WOUND CLEANSED WITH WOUND CLEANSER AND PATTED DRY. NEW FOAM DRESSING APPLIED. PT TOLERATED WELL. LOJA CATHETER REMOVED. FLUID REMOVED FROM CATHETER BALLOON, CATHETER REMOVED, TIP INTACT. PT CONCERNED ABOUT URINARY INCOTINENCE. THIS RN CONCERNED ABOUT IRRITANT CONTACT DERMATITIS ON TOP OF HIS ALREADY MOIST, PAINFUL AND IRRITATED SCROTAL SKIN. CONDOM CATHETER PUT INTO PLACE TO PROTECT PERINEAL AND SCROTAL SKIN. PT IS CONTENT WITH THIS. CBG CHECKED. DIET ZEYAD BRYN AND SUGAR FREE JELLO PROVIDED PER PT REQUEST. CALL LIGHT IN REACH. NO FURTHER REQUESTS AT THIS TIME.
[2023-03-12 17:52] VITALS: BP 101/65
[2023-03-12 20:00] VITALS: BP 104/67
--- NOTE | 2023-03-12 21:04 | NUR ---
PT IS RESTING IN BED. PT IS REPOSITIONED TOWARDS THE LEFT SIDE. CATHETER CARES DONE, CONDOM CATHETER IN PLACE AND WORKING WELL, PINK BLOOD TINGED URINE NOTED. VS ASSESSED. GENERAL ASSESSMENT COMPLETED. ALL QUESTIONS AND CONCERNS ADDRESSED. CALL LIGHT WITH IN REACH, PT EDUCATED ON APPROPRIATE CALL LIGHT USE. BED LOWERED AND LOCKED, BED RAILS ARE UP PER PT REQUEST.
--- NOTE | 2023-03-12 21:42 | NUR ---
REMAINS ON RA AND TAKING OFF RT SERVICE. PLEASE CALL WITH CONCERNS OR O2 USE.
--- NOTE | 2023-03-12 22:51 | NUR ---
PT IS REPOSITIONED IN BED TO THE RIGHT. PT DENIES ANY PAIN AT THE MOMENT. ALL QUESTIONS AND CONCERNS ADDRESSED. CALL LIGHT WITH IN REACH. BED IS LOCKED AND LOWERED. /4 BEDSIDE RAILS UP PER PT REQUEST.
--- NOTE | 2023-03-13 00:30 | NUR ---
PT REFUSES REPOSITION AT THIS TIME. PT REQUESTED SOMETHING TO HELP HIM SLEEP, PRN GIVEN. PT ALSO REQUESTED TO SEE HIS URINE OUTPUT, RN SHOWED HIM THE SUCTION CANISTER. PT DENIES PAIN AT THIS TIME. CALL LIGHT WITH IN REACH. ALL QUESTIONS AND CONCERNS ADDRESSED AT THIS TIME. BED IS LOWERED AND LOCKED, 4/4 BED RAILS UP PER PT REQUEST.
[2023-03-13 02:09] VITALS: BP 106/74
--- NOTE | 2023-03-13 02:26 | NUR ---
PT IS REPOSITIONED. FULL LINEN CHANGE PERFORMED. PERICARE PERFORMED. PT HAD A BOWEL MOVEMENT, PT CONDOM CATHETER STARTED LEAKING SMALL AMOUNT BUT OVERALL IS WORKING WELL. PT COMPLAINED OF PAIN IN HIP AND FOOT, PRN MEDICATION GIVEN. CALL LIGHT WITHIN REACH. ALL QUESTIONS AND CONCERNS ADDRESSED. VS ARE WITHIN NORMAL LIMITS. BED IS LOWERED AND LOCKED, 4/[address] PER PT REQUEST.
--- NOTE | 2023-03-13 04:05 | NUR ---
PT IS RESTING IN BED. PT COMPLAINING OF LEFT HEEL PAIN, PT REPOSITIONED WHICH DECREASED PAIN LEVEL. ALL OTHER QUESTIONS AND CONCERNS ADDRESSED. CALL LIGHT WITH IN REACH. BED LOWERED AND LOCKED, 4/[address] PER PT REQUEST.
[2023-03-13 06:00] VITALS: BP 106/67
--- NOTE | 2023-03-13 06:00 | NUR ---
PT IS REPOSITIONED. NO COMPLAINTS OF PAIN AT THIS TIME. CALL LIGHT IS IN REACH. ALL QUESTIONS AND CONCERNS ADDRESSED. FLUIDS OFFERED. LABS DRAWN. BED IS LOWERED AND LOCKED IN PLACE. VS REVIEWED. DAILY WT OBTAINED. 07/[address] PER PT REQUEST.
[2023-03-13 06:14] LABS: BASOPHILS 1.2 % (0-2); EOSINOPHILS 2.1 % (0-6); HEMOGLOBIN 9.3 g/dL (12.0-18.0); LYMPHOCYTES 17.7 % (24-44); MCH 24.3 (27-36); MCHC 31.1 g/dl (30-36); MONOCYTES 11.4 % (0-12); NEUTROPHILS 67.6 % (39-80); PLATELET COUNT 130 K/uL (140-440); RBC 3.85 M/ul (4.3-5.7); RDW 21.4 (10.5-15.0)
[2023-03-13 06:16] LABS: ANION GAP 8.7 (7-21); BUN/CREATININE RATIO 19.86 (6.0-28.6); CALCIUM 8.3 mg/dL (8.5-10.1); CREATININE, SERUM 1.46 mg/dL (0.70-1.30); POTASSIUM 3.7 mmol/L (3.5-5.1)
--- NOTE | 2023-03-13 07:44 | NUR ---
RECIEVED REPORT FROM PERCY OVIEDO. PT AWAKE AND ALERT IN BED, TURNED TO RIGHT SIDE. PT STATES NO NEEDS AT THIS TIME, CALL LIGHT WITHIN REACH, BED RAILS UP. ASSUMING CARE OF PT WITH PERCY SHERIDAN.
--- NOTE | 2023-03-13 07:45 | NUR ---
REPORT RECEIVED FROM PERCY OVIEDO. PT RESTING IN BED, WATCHING TV. PT REPOSITIONED TO LEFT SIDE LYING, SUPPORTED WITH PILLOWS. PT DRINKING AM FLUIDS QUICKLY, EDUCATION DONE REGARDING FLUID RESTRICTION. PT NODS HEAD IN UNDERSTANDING. BONY PROMINANCES SUPPORTED WITH PILLOWS. NO ADDITIONAL REQUESTS OR COMPLAINTS. CALL LIGHT WITHIN REACH. BED RAILS UP. THIS RN ASSUMING CARE OF PT WITH JONAH GREER.
[2023-03-13 09:25] VITALS: BP 101/63
--- NOTE | 2023-03-13 09:57 | NUR ---
MORNING ASSSESSMENT AND MEDICATIONS DUE, GIVEN (SEE EMAR). PT DENIES PAIN OR NAUSEA AT THIS TIME. PT CONTINUES TO BE FORGETFUL AT TIMES, ALERT AND ORIENTED TO SELF AND SITUATION, DISORIENTED TO DATE. PT CONTINUES TO HAVE WEAKNESS IN BLE, LLE CONTINUES TO HAVE GREATER WEAKNESS COMPARED TO RIGHT SIDE. LUNG SOUNDS CLEAR IN BILAT. UPPER LOBES, LOWER LOBES CONTINUE TO BE DIMINISHED. PT CONTINUES TO HAVE OCCASIONAL, NON-PRODUCTIVE COUGH, STATES "NOT FEELING SHORT OF BREATH ANYMORE". TELE IN PLACE, SINUS TACHYCARDIA PER TELE WITH HR 100-115. RADIAL PULSES FAINT, PEDAL PULSES FOUND WITH DOPPLER. CAP REFILL <3 SECONDS IN ALL EXTREMETIES. EDEMA REMAINS IN LEFT ARM (+1 NON-PITTING), 3+ PITTING EDEMA FROM THE WAIST DOWN. SCROTUM AREA CONTINUES TO HAVE GENERALIZWED EDEMA. ANTIEMBOLIC STOCKING IN PLACE, PT DENIES HAVING ANY NUMBNESS OR TINGLING. PT TOLERATING 60G CARB DIET WELL. NEW CONDOM CATHETER PLACED, SAGE CARE COMPLETED, DARK GREY URINE WITH SEDIMENT PRESENT IN SUCTION CANISTER. SMALL AMOUNTS OF SEROSANGUINOUS DRAINAGE PRESENT IN PENILE AREA. COCCYX PRESSURE WOUND COVERED WITH ALLEVYN, DRESSING C/D/I. LEFT HEEL WOUND COVERED WITH ALLEVYN, DRESSING C/D/I. WOUND ON LEFT GREAT TOE COVERED WITH GAUZE, DRESSING C/D/I. LEFT SECOND TOE ABBRASION OPEN TO AIR, NO CHANGE. PT STATES NO FURTHER QUESTIONS OR NEEDS AT THIS TIME, CALL LIGHT WITHIN REACH, BED RAILS UP.
--- NOTE | 2023-03-13 10:30 | NUR ---
Orders completed and Packet taken to nurses station. Faxed orders, dc summary, and emar x 5 days. Charge nurse updated, pt will dc at 1530 today by madhuri reza.
--- NOTE | 2023-03-13 11:14 | NUR ---
HOURLY ROUNDING. PT REQUESTS TO GET UP TO CHAIR, UP TO CHAIR WITH X2 PERSON ASSIST AND SERASTEDY. PT HAS INCONTINENT BM (SMALL AMOUNT) ON CHUX IN BED. NEW DEPENDS IN PLACE. PT REQUESTS O2 VIA N/C, O2 SATURATION >95%, PT EDUCATION ON USE OF O2 THERAPY, PT AGREES TO A FAN INSTEAD FOR AIR FLOW, FAN GIVEN. PT STATES NO FURTHER NEEDS AT THIS TIME, CALL LIGHT WITHIN REACH, FOOT OF CHAIR RAISED.
--- NOTE | 2023-03-13 11:38 | NUR ---
MS ROUNDS. PHYSICAL THERAPY IN ROOM. DID NOT INTERRUPT. PROVIDED PRATELMA.
--- NOTE | 2023-03-13 12:01 | NUR ---
PT CALL LIGHT ON. PT REPORTS HE IS "ALLERGIC TO TURKEY." WHICH IS WHAT WAS SERVED FOR LUNCH. LUNCH TRAY REMOVE. NEW LUNCH ORDER PLACED. PT REQUESTS ASSISTANCE WITH REPOSITIONING IN CHAIR, PROVIDED. NO INSULIN NEEDED. PT DENIES ADDITIONAL REQUESTS OR COMPLAINTS. PT CALLS 5 MINUTES LATER WANTING A SNACK, PROVIDED. PT ONCE AGAIN DENIES REQUESTS OR COMPLAINTS HOWEVER HE CALLS AGAIN 5 MINUTES LATER WANTING "MY FAN TURNED OFF." PT TAUGHT HOW TO TURN OFF AND ON FAN. PT DEMONSTRATES UNDERSTANDING. NO ADDITIONAL REQUESTS OR COMPLANTS. CALL LIGHT WITHIN REACH. PTS PRIMARY RN UPDATED.
--- NOTE | 2023-03-13 12:11 | NUR ---
HOURLY ROUNDING. PT DENIES ANY PAIN AT THIS TIME, UP TO CHAIR EATING LUNCH. PT STATES NO NEEDS AT THIS TIME, CALL LIGHT WITHIN REACH, FOOT OF CHAIR RAISED, TELE DC'D PER ORDER.
--- NOTE | 2023-03-13 12:52 | NUR ---
Warm blanket provdided per patient request
--- NOTE | 2023-03-13 13:27 | NUR ---
AFTERNOON ASSESSMENT. HEART TONES REGULAR. EDEMA UNCHANGED FROM MORNING ASSESSMENT BUT FOR SLIGHT DECREASE IN FEET, FAINT PULSES PRESENT IN BLE. LEFT FOREARM IV DC'D D/T NOT BEING NEEDED AND PT DC PLAN FOR THIS AFTERNOON. WOUND ASSESSMENT UNCHANGED FROM MORNING ASSESSMENT, ALL DRESSING REMAIN C/D/I, NO DRAINAGE PRESENT ON LEFT SECOND TOE ABBRASION, COCCYX DRESSING UNSEEN UPON THIS ASSESSMENT D/T PT UP TO CHAIR. PT DISCHARGE EDUCATION COMPLETED, PT VERBALIZES UNDERSTANDING OF INSTRUCTIONS, MEDICATIONS, AND FOLLOW-UPS. PT STATES NO FURTHER NEEDS AT THIS TIME, CALL LIGHT WITHIN REACH, FOOT OF CHAIR UP, PT AWAITING RIDE FROM [facility].
--- NOTE | 2023-03-13 13:31 | NUR ---
UR NOTE [facility] HEART FAILURE (ISC) INPATIENT 03/12/23 VARIANCE GL DAY 2 03/13/23 MET GL DAY 2 AND 3
--- NOTE | 2023-03-13 13:41 | NUR ---
THIS RN TO ROOM TO ASSIST PT WITH PREPARING FOR DISCHRAGE. PT UP TO CHAIR. PT DRESSED WITH ONE PERSON ASSIST AND ARIEL STEADY. PT ABLE TO STAND WITH 1 PERSON ASSIST. DEPENDS CHANGED. SAGE CARE DONE. PT DRESSED IN CLOTHES FROM HOME PER HIS REQUEST. CONDOM CATHETER REMAINS IN PLACE TO ASSIST WITH INCONTINANCE. INCONTINANCE PAD ALSO IN PLACE. IV TO LEFT FORARM DC'D PER PROTOCOL. GAUZE AND COBAN APPLIED. IV TO RIGHT FORARM REMAINS IN PLACE IN CASE OF EMERGENCY. DISCHARGE INSTRUCTIONS REVIEWED WITH PT, PT VERBALIZES UNDERSTANDING AND STATES ALL HIS QUESTIONS HAVE BEEN ANSWERED. NO ADDITIONAL REQUESTS OR COMPLAINTS. PT REMAINS UP TO CHAIR. CALL LIGHT WITHIN REACH.
--- NOTE | 2023-03-13 14:24 | NUR ---
PT CALL LIGHT ON. PT REQUESTS PAIN MEDICATION FOR 6/10 ACHING PAIN IN LEFT HIP. SEE MAR FOR MEDICATION GIVEN. HEAT PACK ALSO PROVIDED PER PT REQUEST. PT ALSO ASSISTED WITH REPOSITIONING IN CHAIR. NO ADDITIONAL REQUESTS OR COMPLAINTS. CALL LIGHT WITHIN REACH.
[2023-03-13 14:40] VITALS: BP 106/63
--- NOTE | 2023-03-13 15:15 | NUR ---
THIS RN TO ROOM TO ASSIST WITH STRAIGHT CATH PRIOR TO DISCHARGE. MD STATES OK TO STARIGHT CATH PT AND PT WILL FOLLOW UP WITH UROLOGY. STRAIGHT CATH WITH 14 DANISH MALE STAIGHT CATH KIT PER PROTOCOL. LUBRACANT USED. NO RESISTANCE PRESENT. PT TOLERATED WELL. 350ML CLOUDY URINE EMPTIED FROM BLADDER, MD AWARE OF URINE CLARITY/COLOR, NO NEW ORDERS. CATHETER REMOVED PER PROTOCOL. DEPENDS AND INCONTINANCE PAD CHANGED. PT UP TO WHEELCHAIR WITH ARIEL VALDEZ AND 1 PERSON ASSISTANCE. PT WHEELED FROM MED/SURG TO MEET WHEELCHAIR VAN FOR DISCHARGE.
--- NOTE | 2023-03-13 15:43 | NUR ---
DISCHARGE NOTE. VSS. R IV REMOVED BY ADDIE DA SILVA. DISCHARGE PACKET PROVIDED TO PT AND TO [facility], REPORT GIVEN TO LEODAN RN VIA TELEPHONE. PT AMBULATES TO WHEELCHAIR VIA X1 PERSON ASSIST AND SERASTJENNIFER. WHEELED TO FRONT OF BUILDING BY NURSING PERSONEL.
== END 2023-03-13 15:30 | disposition home or self-care (01) | DRG 292 ==
LOC: ED 16:58 → CCU 20:37 → MS 20:37 → CCU 03-08 23:08 → MS 03-12 01:35
PROVIDERS: Emergency Medicine; Internal Medicine; ADMIT Family Medicine; ATTEND Family Medicine
DX: I50.9 Heart failure, unspecified (principal); E87.1 Hypo-osmolality and hyponatremia; N17.9 Acute kidney failure, unspecified; E87.5 Hyperkalemia; N18.9 Chronic kidney disease, unspecified; E11.22 Type 2 diabetes mellitus with diabetic chronic kidney disease; E78.5 Hyperlipidemia, unspecified; R62.7 Adult failure to thrive; I25.2 Old myocardial infarction; Z95.5 Presence of coronary angioplasty implant and graft; Z98.890 Other specified postprocedural states; Z79.899 Other long term (current) drug therapy; Z79.82 Long term (current) use of aspirin; Z79.84 Long term (current) use of oral hypoglycemic drugs; Z11.52 Encounter for screening for COVID-19; Z68.36 Body mass index [BMI] 36.0-36.9, adult
CPT/HCPCS: 36415; 51702; 71045; 80048; 80053; 83735; 83880; 84100; 84439; 84443; 84484; 85025; 85060; 87502; 93005; 93010; 93306; 94760; 97110; 97161; 97166; 97530; 97535; 99285-25; A9270; C9803; J1650; J1815; J1940; J3475; J3490; U0002

== ENCOUNTER 2023-03-16 12:05 | Emergency (ER) | payer MEDICARE, OTHER ==
[~2023-03-16] VITALS: Ht 172.7 cm; Wt 89.8 kg
[~2023-03-16 12:05] MED LIST: ATORVASTATIN CA40 MG PO; FERROUS GLUCON324 M1 PO; FLOMAX0.4 MG PO; HEARTBURN PREVE20 MG PO; KAPSPARGO SPRIN25 MG PO; LIPITOR40 MG PO; LISINOPRIL20 MG PO; MAGNESIUM OXID400 M1 PO; MELATONIN3 MG PO; METFORMIN HCL500 M3 PO; METFORMIN HCL500 MG PO; METOPROLOL TART25 MG PO; NITROGLYCERIN0.4 MG SL; PARVA-CAL 5001 EACH PO; PLAVIX75 MG PO; SOAANZ40 MG PO; ST. JOSEPH ASPI81 M1 PO
[2023-03-16 12:25] VITALS: BP 72/52
--- NOTE | 2023-03-17 05:50 | EKG ---
[facility] [address] [place], [place] [address] Signed Sinus rhythm with 1st degree AV block Low voltage QRS Possible Lateral infarct , age undetermined Abnormal ECG compared to previous ekg 03/07/23: pt no longer tachycardic Confirmed by JEROME HAYES MD ([id number]) on 03/17/2023 5:49:47 AM Electronically Signed By: JEROME HAYES 03/17/23 0549 PATIENT NAME: REY BYRD Electrocardiogram DATE OF : 54 PHYSICIAN: JEROME HAYES REPORT #: [id number] REPORT IS CONFIDENTIAL AND NOT TO BE RELEASED WITHOUT AUTHORIZATION
== END 2023-03-16 17:15 ==
LOC: ED 12:05
DX: I95.9 Hypotension, unspecified (principal); R09.02 Hypoxemia; I46.9 Cardiac arrest, cause unspecified; I25.2 Old myocardial infarction; E11.9 Type 2 diabetes mellitus without complications; Z79.899 Other long term (current) drug therapy; Z79.82 Long term (current) use of aspirin; Z79.84 Long term (current) use of oral hypoglycemic drugs
CPT/HCPCS: 31500; 80053; 82803; 83605; 85025; 87040; 87502; 92950; 93005; 93010; 99285-25; J0171; J7030; U0002